=== PATIENT | female | born 1930 | race Caucasian/White ===

== ENCOUNTER 2016-03-05 19:47 | Inpatient (IN) | payer MEDICARE, BC ==
[~2016-03-05] VITALS: Ht 165.1 cm; Wt 66.7 kg
[~2016-03-05 19:47] MED LIST: AMIT10TA6 PO; ASPI81TA2 PO; BIOT1000 PO; CHOL20006 PO; CITA20TA19 PO; CRAN300T PO; GABA600T PO; OMEG-15 PO; OMEP40CA PO; RESV250C2 PO; VALS320T2 PO
[2016-03-05] MEDS ORDERED: IV NS 0.9% 500 ML IV ONE ×2 (20:37→20:53)
[2016-03-05] MEDS ORDERED: IV SET PRIMARY 1 EA INFUS.SET MC ONE (20:37)
[2016-03-05 20:38] LABS: BASOPHILS % (AUTO) 0.5 % (0.0-2.0); DIFF TOTAL % 100 %; EOSINOPHILS # (AUTO) 0.1 /CMM (0.0-0.7); HEMATOCRIT 35 % (33-45); HEMOGLOBIN 12.3 g/dL (11.5-14.8); LYMPHOCYTES # (AUTO) 1.2 /CMM (0.8-4.8); LYMPHOCYTES % (AUTO) 27.1 % (20.0-44.0); MEAN CORPUSCULAR HEMOGLOBIN 32 PG (26.0-33.0); MEAN CORPUSCULAR HGB CONC 35 g/dl (31.0-36.0); MEAN CORPUSCULAR VOLUME 92 fL (82-100); MONOCYTES # (AUTO) 0.3 /CMM (0.1-1.30); MONOCYTES % (AUTO) 7.1 % (2.0-12.0); NEUTROPHILS # (AUTO) 2.8 /CMM (1.8-8.9); NEUTROPHILS % (AUTO) 63.3 % (43.0-81.0); PLATELET COUNT (AUTO) 128 /CMM (150-450); RED BLOOD CELL COUNT(AUTO) 3.83 MIL/uL (4.0-5.2); WHITE BLOOD COUNT (AUTO) 4.4 K/uL (4.3-11.0)
[2016-03-05 20:44] LABS: CALCIUM, SERUM 9.2 mg/dL (8.5-10.1); CREATININE 1.3 mg/dL (0.6-1.3); POTASSIUM 3.6 mmol/L (3.5-5.1)
[2016-03-05 20:47] LABS: INR 1.04 (0.87-1.13); PROTHROMBIN TIME 10.9 SECS (9.5-12.7)
[2016-03-05 20:50] LABS: ALBUMIN 3.3 g/dL (3.4-5.0); BILIRUBIN,DIRECT 0.1 mg/dL (0.0-0.2); BILIRUBIN,TOTAL 0.4 mg/dL (0.2-1.0); INDIRECT BILIRUBIN 0.3 mg/dL (0.0-1.1); TOTAL PROTEIN, SERUM 6.3 g/dL (6.4-8.2)
[2016-03-05 20:52] LABS: TROPONIN I 0.038 ng/mL (0.00-0.056)
[2016-03-05] MEDS ORDERED: IV NS 0.9% 500 ML BAG IV ONE ×2 (21:00)
[2016-03-05] MEDS ORDERED: IV NS 0.9% 1,000 ML IV PRN (22:25)
[2016-03-05] MEDS ORDERED: MAGNESIUM HYDROXIDE 30 ML UDC PO PRN (22:30)
[2016-03-05] MEDS ORDERED: ONDANSETRON HCL/PF 4 MG/2 ML VIAL IVP PRN (22:30)
[2016-03-05] MEDS ORDERED: ZOLPIDEM TARTRATE 5 MG TABLET PO PRN (22:30)
[2016-03-05] MEDS ORDERED: ACETAMINOPHEN 325 MG TABLET PO PRN (22:30)
[2016-03-05] MEDS ORDERED: MAG HYDROX/AL HYDROX/SIMETH 30 ML UDC PO PRN (22:30)
[2016-03-05] MEDS ORDERED: Z GUARD REMEDY 2 OZ OINT TP PRN (22:30)
[2016-03-05] MEDS ORDERED: HYDROCODONE/APAP 5/325MG 1 EACH TABLET PO PRN (22:30)
[2016-03-05] MEDS ORDERED: IV SET PRIMARY PUMP SET 1 EA INFUS.SET MC ONE (23:37)
[2016-03-06] VITALS (8 sets, daily range): BP systolic 120–160; BP diastolic 57–80
[2016-03-06 07:16] LABS: BASOPHILS % (AUTO) 0.3 % (0.0-2.0); DIFF TOTAL % 100 %; EOSINOPHILS # (AUTO) 0.1 /CMM (0.0-0.7); EOSINOPHILS % (AUTO) 1.8 % (0.0-6.0); HEMATOCRIT 32 % (33-45); LYMPHOCYTES # (AUTO) 1.3 /CMM (0.8-4.8); LYMPHOCYTES % (AUTO) 22.6 % (20.0-44.0); MEAN CORPUSCULAR HEMOGLOBIN 32 PG (26.0-33.0); MEAN CORPUSCULAR HGB CONC 35 g/dl (31.0-36.0); MEAN CORPUSCULAR VOLUME 92 fL (82-100); MONOCYTES # (AUTO) 0.4 /CMM (0.1-1.30); MONOCYTES % (AUTO) 7.1 % (2.0-12.0); NEUTROPHILS # (AUTO) 3.9 /CMM (1.8-8.9); NEUTROPHILS % (AUTO) 68.2 % (43.0-81.0); PLATELET COUNT (AUTO) 113 /CMM (150-450); RED BLOOD CELL COUNT(AUTO) 3.45 MIL/uL (4.0-5.2); WHITE BLOOD COUNT (AUTO) 5.8 K/uL (4.3-11.0)
[2016-03-06] MEDS ORDERED: IV NS 0.9% 1,000 ML IV PRN (07:18)
[2016-03-06] MEDS ORDERED: PANTOPRAZOLE 40 MG TABLET.DR PO SCH (07:30)
[2016-03-06 07:47] LABS: CALCIUM, SERUM 8.4 mg/dL (8.5-10.1); POTASSIUM 3.5 mmol/L (3.5-5.1)
[2016-03-06] MEDS ORDERED: CRANBERRY EXTRACT 300 MG PO SCH (09:00)
[2016-03-06] MEDS ORDERED: ASPIRIN 81 MG TAB.CHEW PO SCH ×2 (09:00)
[2016-03-06] MEDS ORDERED: Medication Not On Formulary EA (Omega-3/Dha/Epa/Fish Oil (Fish Oil 1,400 Mg Softgel) 1 E PO SCH (09:00)
[2016-03-06] MEDS ORDERED: CHOLECALCIFEROL 1,000 UNIT TABLET (VIT D3) PO SCH (09:00)
[2016-03-06] MEDS ORDERED: BIOTIN 10000 MCG PO SCH (09:00)
[2016-03-06] MEDS ORDERED: VALSARTAN 80 MG TABLET PO SCH (09:00)
[2016-03-06] MEDS ORDERED: GABAPENTIN 300 MG CAPSULE PO SCH (11:30)
[2016-03-06] MEDS ORDERED: SECONDARY IV SET 1 EA INFUS.SET MC ONE (14:37)
[2016-03-06] MEDS: Magnesium 1GM/D5W 100ML PREMIX 100 ML IV SCH ×2 (14:49→16:10)
[2016-03-06] MEDS ORDERED: GABAPENTIN 400 MG CAPSULE PO SCH (22:00)
[2016-03-06] MEDS ORDERED: CITALOPRAM HYDROBROMIDE 20 MG TABLET PO SCH (22:00)
[2016-03-06] MEDS ORDERED: AMITRIPTYLINE HCL 10 MG TABLET PO SCH (22:00)
== END 2016-03-06 17:55 | disposition home or self-care (01) | DRG 73 ==
LOC: ER 19:49 → TELE 21:52
PROVIDERS: ADMIT Internal Medicine; ATTEND Internal Medicine
DX: G90.8 Other disorders of autonomic nervous system (principal); N17.0 Acute kidney failure with tubular necrosis; E44.0 Moderate protein-calorie malnutrition; I10 Essential (primary) hypertension; E86.0 Dehydration; E83.39 Other disorders of phosphorus metabolism; H91.90 Unspecified hearing loss, unspecified ear; K21.9 Gastro-esophageal reflux disease without esophagitis; G62.9 Polyneuropathy, unspecified; M62.50 Muscle wasting and atrophy, not elsewhere classified, unspecified site; Z68.24 Body mass index [BMI] 24.0-24.9, adult; D63.8 Anemia in other chronic diseases classified elsewhere; J44.9 Chronic obstructive pulmonary disease, unspecified
CPT/HCPCS: 36415; 71010-TC; 80048-TC; 80076-TC; 83735-TC; 84100-TC; 84484-TC; 85025-TC; 85730-TC; 87081-TC; 93307-TC; A4606; J3475; J7040; Z7610

== ENCOUNTER 2016-05-02 23:32 | Inpatient (IN) | payer MEDICARE, BC ==
[~2016-05-02] VITALS: Ht 152.4 cm; Wt 61.7 kg
[~2016-05-02 23:32] MED LIST changes: -RESV250C2 PO
[2016-05-03 00:39] LABS: BASOPHILS % (AUTO) 0.1 % (0.0-2.0); DIFF TOTAL % 100 %; EOSINOPHILS # (AUTO) 0.1 /CMM (0.0-0.7); EOSINOPHILS % (AUTO) 1.5 % (0.0-6.0); HEMATOCRIT 34 % (33-45); HEMOGLOBIN 11.3 g/dL (11.5-14.8); LYMPHOCYTES # (AUTO) 0.8 /CMM (0.8-4.8); LYMPHOCYTES % (AUTO) 17.9 % (20.0-44.0); MEAN CORPUSCULAR HEMOGLOBIN 31 PG (26.0-33.0); MEAN CORPUSCULAR HGB CONC 34 g/dl (31.0-36.0); MEAN CORPUSCULAR VOLUME 92 fL (82-100); MONOCYTES # (AUTO) 0.4 /CMM (0.1-1.30); MONOCYTES % (AUTO) 7.8 % (2.0-12.0); NEUTROPHILS # (AUTO) 3.3 /CMM (1.8-8.9); NEUTROPHILS % (AUTO) 72.7 % (43.0-81.0); PLATELET COUNT (AUTO) 127 /CMM (150-450); RED BLOOD CELL COUNT(AUTO) 3.64 MIL/uL (4.0-5.2); WHITE BLOOD COUNT (AUTO) 4.6 K/uL (4.3-11.0)
[2016-05-03 00:54] LABS: ANION GAP 10 (5-14); CARBON DIOXIDE 29 mmol/L (21-32); CHLORIDE 105 mmol/L (98-107); CREATININE 1.2 mg/dL (0.6-1.3); GLUCOSE 109 mg/dL (74-106); POTASSIUM 3.9 mmol/L (3.5-5.1); SODIUM SERUM 140 mmol/L (136-145); UREA NITROGEN, BLOOD 33 mg/dL (7-18)
[2016-05-03 00:57] LABS: INR 0.97 (0.87-1.13); PROTHROMBIN TIME 10.5 SECS (9.5-12.7)
[2016-05-03 01:00] LABS: ALANINE AMINOTRANSFERASE 23 U/L (12-78); ALBUMIN 3.4 g/dL (3.4-5.0); ASPARTATE AMINOTRANSFERASE 13 U/L (15-37); BILIRUBIN,DIRECT 0.1 mg/dL (0.0-0.2); BILIRUBIN,TOTAL 0.5 mg/dL (0.2-1.0); INDIRECT BILIRUBIN 0.4 mg/dL (0.0-1.1); TOTAL PROTEIN, SERUM 6.1 g/dL (6.4-8.2)
[2016-05-03 01:03] LABS: TROPONIN I < 0.017 ng/mL (0.00-0.056)
[2016-05-03] MEDS ORDERED: MELA1TAB2 PO (01:30)
[2016-05-03 02:40] VITALS: BP 141/69
[2016-05-03] MEDS ORDERED: ONDANSETRON HCL/PF 4 MG/2 ML VIAL IVP PRN (03:30)
[2016-05-03] MEDS ORDERED: HYDROCODONE/APAP 5/325MG 1 EACH TABLET PO PRN (03:30)
[2016-05-03] MEDS ORDERED: MAGNESIUM HYDROXIDE 30 ML UDC PO PRN (03:30)
[2016-05-03] MEDS ORDERED: ACETAMINOPHEN 325 MG TABLET PO PRN (03:30)
[2016-05-03] MEDS ORDERED: ZOLPIDEM TARTRATE 5 MG TABLET PO PRN (03:30)
[2016-05-03 04:00] VITALS: BP 141/69
[2016-05-03 08:00] VITALS: BP 113/53
[2016-05-03] MEDS: PANTOPRAZOLE 40 MG TABLET.DR PO SCH (08:21)
[2016-05-03] MEDS ORDERED: GABA-534 PO (09:11)
[2016-05-03] MEDS ORDERED: VALS80TA2 PO (09:11)
[2016-05-03 12:00] VITALS: BP 110/61
[2016-05-03 16:00] VITALS: BP_SYST 121; BP_SYST 130; BP_DIAS 70; BP_DIAS 72
[2016-05-03] MEDS: GABAPENTIN 300 MG CAPSULE PO SCH (16:20)
[2016-05-03 20:00] VITALS: BP 127/42
[2016-05-03] MEDS ORDERED: CITALOPRAM HYDROBROMIDE 20 MG TABLET PO SCH (22:00)
[2016-05-03] MEDS ORDERED: ASPIRIN 81 MG TAB.CHEW PO SCH (22:00)
[2016-05-04 07:04] LABS: BASOPHILS % (AUTO) 0.5 % (0.0-2.0); DIFF TOTAL % 100 %; EOSINOPHILS # (AUTO) 0.1 /CMM (0.0-0.7); EOSINOPHILS % (AUTO) 3.6 % (0.0-6.0); HEMATOCRIT 33 % (33-45); HEMOGLOBIN 11.3 g/dL (11.5-14.8); LYMPHOCYTES # (AUTO) 1.1 /CMM (0.8-4.8); LYMPHOCYTES % (AUTO) 28.5 % (20.0-44.0); MEAN CORPUSCULAR HEMOGLOBIN 31 PG (26.0-33.0); MEAN CORPUSCULAR HGB CONC 34 g/dl (31.0-36.0); MEAN CORPUSCULAR VOLUME 92 fL (82-100); MONOCYTES # (AUTO) 0.4 /CMM (0.1-1.30); MONOCYTES % (AUTO) 11.1 % (2.0-12.0); NEUTROPHILS # (AUTO) 2.2 /CMM (1.8-8.9); NEUTROPHILS % (AUTO) 56.3 % (43.0-81.0); PLATELET COUNT (AUTO) 123 /CMM (150-450); RED BLOOD CELL COUNT(AUTO) 3.58 MIL/uL (4.0-5.2)
[2016-05-04 07:17] LABS: CALCIUM, SERUM 8.7 mg/dL (8.5-10.1); PHOSPHORUS 3.1 mg/dL (2.5-4.9); POTASSIUM 3.7 mmol/L (3.5-5.1)
[2016-05-04 08:00] VITALS: BP 119/54
[2016-05-04] MEDS: PANTOPRAZOLE 40 MG TABLET.DR PO SCH (08:26)
[2016-05-04] MEDS: GABAPENTIN 300 MG CAPSULE PO SCH (08:26)
[2016-05-04 08:33] VITALS: BP 119/54
[2016-05-04 09:00] VITALS: BP 118/57
[2016-05-04] MEDS ORDERED: PANTOPRAZOLE 40 MG TABLET.DR PO SCH (09:00)
[2016-05-04] MEDS ORDERED: VALSARTAN 80 MG TABLET PO SCH (09:00)
[2016-05-04] MEDS ORDERED: MAGNESIUM OXIDE 400 MG TABLET PO ONE (12:00)
== END 2016-05-04 12:22 | disposition home or self-care (01) | DRG 392 ==
LOC: ER 23:39 → TELE1 05-03 02:00 → MEDSG1 05-04 00:09
PROVIDERS: ADMIT Nurse Practitioner Acute Care
DX: K21.9 Gastro-esophageal reflux disease without esophagitis (principal); R07.9 Chest pain, unspecified; I11.9 Hypertensive heart disease without heart failure; E78.5 Hyperlipidemia, unspecified; J44.9 Chronic obstructive pulmonary disease, unspecified; M06.9 Rheumatoid arthritis, unspecified; F32.9 Major depressive disorder, single episode, unspecified; Z90.49 Acquired absence of other specified parts of digestive tract; D64.9 Anemia, unspecified; K58.9 Irritable bowel syndrome, unspecified
CPT/HCPCS: 36415; 71100-TC; 80048-TC; 80061-TC; 80076-TC; 83690-TC; 83735-TC; 83880; 84100-TC; 84484-TC; 85025-TC; 85730-TC; 87081-TC; A4606; Z7610

== ENCOUNTER 2016-12-16 20:47 | Inpatient (IN) | payer MEDICARE, BC ==
[~2016-12-16] VITALS: Ht 154.9 cm; Wt 62.6 kg
[2016-12-16 20:00] VITALS: BP 125/65
[~2016-12-16 20:47] MED LIST changes: -AMIT10TA6 PO; +GABA-534 PO; -GABA600T PO; +MELA1TAB2 PO; -VALS320T2 PO; +VALS80TA2 PO
--- NOTE | 2016-12-16 20:54 | NUR ---
pt [id number] fr home for c/o sudden onset lt sided cp, nonradiating, given ASA 162mg f/b NTG x1 spray in field w/ cp since relieved, report also taking her own ASA 162mg at home. AOx4, afebrile w/ resp even & unlabored, hypoxic, denies any sob, report feeling lightheaded w/ no cp at this time. Placed on 2 l/min O2 via NC, pulse-ox w/ cardiac monitoring. Dr. Lucas at bedside for further eval.
--- NOTE | 2016-12-16 20:56 | NUR ---
labs drawn & sent.
[2016-12-16 21:11] LABS: BASOPHILS % (AUTO) 0.5 % (0.0-2.0); EOSINOPHILS # (AUTO) 0.1 /CMM (0.0-0.7); EOSINOPHILS % (AUTO) 1.4 % (0.0-6.0); HEMATOCRIT 34 % (33-45); HEMOGLOBIN 11.4 g/dL (11.5-14.8); LYMPHOCYTES # (AUTO) 0.3 /CMM (0.8-4.8); LYMPHOCYTES % (AUTO) 6.2 % (20.0-44.0); MEAN CORPUSCULAR HEMOGLOBIN 32 PG (26.0-33.0); MEAN CORPUSCULAR HGB CONC 34 g/dl (31.0-36.0); MEAN CORPUSCULAR VOLUME 93 fL (82-100); MONOCYTES # (AUTO) 0.1 /CMM (0.1-1.30); MONOCYTES % (AUTO) 1.7 % (2.0-12.0); NEUTROPHILS # (AUTO) 4.5 /CMM (1.8-8.9); NEUTROPHILS % (AUTO) 90.2 % (43.0-81.0); PLATELET COUNT (AUTO) 100 /CMM (150-450); RDW COEFFICIENT OF VARIATION 13.1 (11.5-15.0); RED BLOOD CELL COUNT(AUTO) 3.61 MIL/uL (4.0-5.2)
--- NOTE | 2016-12-16 21:13 | NUR ---
CXR at bedside.
[2016-12-16 21:29] LABS: CALCIUM, SERUM 8.8 mg/dL (8.5-10.1); CARBON DIOXIDE 28 mmol/L (21-32); CHLORIDE 99 mmol/L (98-107); CREATININE 1.3 mg/dL (0.6-1.3); GLUCOSE 170 mg/dL (74-106); POTASSIUM 3.5 mmol/L (3.5-5.1); SODIUM SERUM 134 mmol/L (136-145); UREA NITROGEN, BLOOD 38 mg/dL (7-18)
[2016-12-16 21:37] LABS: INR 1.01 (0.87-1.13); PROTHROMBIN TIME 10.5 SECS (9.5-12.7); TROPONIN I < 0.017 ng/mL (0.00-0.056)
--- NOTE | 2016-12-16 21:44 | NUR ---
Report given to FANTA Harrington for pt admission to tele rm [id number]. pt lying in bed w/ resp even & unlabored, denies any cp at this time w/ nad noted. On continuous cardiac monitoring.
[2016-12-16 22:30] VITALS: BP 125/65
[2016-12-16] MEDS ORDERED: ACETAMINOPHEN 325 MG TABLET PO PRN (23:00)
[2016-12-16] MEDS ORDERED: HYDROCODONE/APAP 5/325MG 1 EACH TABLET PO PRN (23:00)
[2016-12-16] MEDS ORDERED: MAG HYDROX/AL HYDROX/SIMETH 30 ML UDC PO PRN (23:00)
[2016-12-16] MEDS ORDERED: ZOLPIDEM TARTRATE 5 MG TABLET PO PRN (23:00)
[2016-12-16] MEDS ORDERED: MAGNESIUM HYDROXIDE 30 ML UDC PO PRN (23:00)
[2016-12-16] MEDS ORDERED: ENOXAPARIN SODIUM 30 MG/0.3 ML DISP.SYRIN SQ SCH (23:00)
[2016-12-16] MEDS ORDERED: Z GUARD REMEDY 2 OZ OINT TP PRN (23:00)
[2016-12-16] MEDS ORDERED: ONDANSETRON HCL/PF 4 MG/2 ML VIAL IVP PRN (23:00)
[2016-12-16] MEDS ORDERED: ENOXAPARIN SODIUM 30 MG/0.3 ML DISP.SYRIN ONE (23:20)
[2016-12-16] MEDS ORDERED: CITALOPRAM HYDROBROMIDE 20 MG TABLET ONE (23:21)
[2016-12-17] VITALS: BP 99/47
[2016-12-17 04:00] VITALS: BP 114/48
[2016-12-17 05:12] VITALS: BP 114/48
[2016-12-17 06:00] LABS: BASOPHILS % (AUTO) 0.3 % (0.0-2.0); CALCIUM, SERUM 8.6 mg/dL (8.5-10.1); CARBON DIOXIDE 28 mmol/L (21-32); CHLORIDE 102 mmol/L (98-107); CREATININE 1.2 mg/dL (0.6-1.3); EOSINOPHILS % (AUTO) 1.2 % (0.0-6.0); GLUCOSE 122 mg/dL (74-106); HEMATOCRIT 31 % (33-45); HEMOGLOBIN 10.6 g/dL (11.5-14.8); LYMPHOCYTES # (AUTO) 0.4 /CMM (0.8-4.8); LYMPHOCYTES % (AUTO) 10.6 % (20.0-44.0); MAGNESIUM 1.8 mg/dL (1.8-2.4); MEAN CORPUSCULAR HEMOGLOBIN 32 PG (26.0-33.0); MEAN CORPUSCULAR HGB CONC 35 g/dl (31.0-36.0); MEAN CORPUSCULAR VOLUME 92 fL (82-100); MONOCYTES # (AUTO) 0.2 /CMM (0.1-1.30); MONOCYTES % (AUTO) 5.8 % (2.0-12.0); NEUTROPHILS # (AUTO) 3.1 /CMM (1.8-8.9); NEUTROPHILS % (AUTO) 82.1 % (43.0-81.0); PHOSPHORUS 3.5 mg/dL (2.5-4.9); PLATELET COUNT (AUTO) 81 /CMM (150-450); POTASSIUM 3.3 mmol/L (3.5-5.1); RDW COEFFICIENT OF VARIATION 13.6 (11.5-15.0); SODIUM SERUM 137 mmol/L (136-145); UREA NITROGEN, BLOOD 34 mg/dL (7-18); WHITE BLOOD COUNT (AUTO) 3.8 K/uL (4.3-11.0)
[2016-12-17] MEDS ORDERED: GABAPENTIN 300 MG CAPSULE ONE (06:39)
[2016-12-17] MEDS ORDERED: IV NS 0.9% 1,000 ML IV PRN (06:47)
--- NOTE | 2016-12-17 06:58 | NUR ---
Patient seen by MD Bhatt. Patient schedule for a stress test today. Patient had no chest pain this 12 hours. Smiling and in good spirits
[2016-12-17] MEDS ORDERED: GABAPENTIN 300 MG CAPSULE PO SCH (07:00)
[2016-12-17] MEDS ORDERED: POTASSIUM CHLORIDE 20 MEQ TAB.PRT.SR PO SCH (07:00)
[2016-12-17 08:00] VITALS: BP 128/53
--- NOTE | 2016-12-17 08:00 | NUR ---
RN NOTES RECEIVED PATIENT IN THE ROOM, A/O X3/, NO RESPIRATORY DISTRESS, NO C/O PAIN, V/S STABLE,PATIENT NPO GOING STRESS TEST, CONSENT FORM SIGNED, PATIENT AMBULATORY, CONTINENT, HR-65, CALL LIGHT WITHIN TO REACH, SAFETY PRECAUTION MAINTAINED ALL THE TIME.
[2016-12-17 08:33] LABS: BAND % (MANUAL) 6 % (0.0-5.0); EOSINOPHILS % (MANUAL) 3 % (0-4); LYMPHOCYTES % (MANUAL) 11 % (16-48); MONOCYTES % (MANUAL) 8 % (0-11.0); NEUTROPHILS % (MANUAL) 72 (42-76)
[2016-12-17 08:40] LABS: IRON, SERUM 20 ug/dl (50-175); TOTAL IRON BINDING CAPACITY 190 ug/dl (250-450)
[2016-12-17] MEDS ORDERED: Medication Not On Formulary EA (Omega-3/Dha/Epa/Fish Oil (Fish Oil 1,400 Mg Softgel) 1 E PO SCH (09:00)
[2016-12-17] MEDS ORDERED: VALSARTAN 80 MG TABLET PO SCH (09:00)
[2016-12-17] MEDS ORDERED: CRANBERRY EXTRACT 300 MG PO SCH (09:00)
[2016-12-17] MEDS ORDERED: CHOLECALCIFEROL 1,000 UNIT TABLET (VIT D3) PO SCH (09:00)
[2016-12-17] MEDS ORDERED: BIOTIN 10000 MCG PO SCH (09:00)
[2016-12-17 09:14] LABS: FERRITIN 1268 ng/mL (8-388)
--- NOTE | 2016-12-17 10:30 | NUR ---
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
[2016-12-17] MEDS ORDERED: REGADENOSON 0.4 MG/5 ML DISP.SYRIN IVP ONE (11:00)
--- NOTE | 2016-12-17 11:30 | NUR ---
RN NOTES PATIENT BACK FROM TEST, NO ACUTE DISTRESS, EATING, NO C/O PAIN AT THIS TIME, CALL LIGHT WITHIN TO REACH, SAFETY PRECAUTION MAINTAINED ALL THE TIME.
[2016-12-17 12:00] VITALS: BP 124/56
[2016-12-17 12:04] VITALS: BP 128/75
--- NOTE | 2016-12-17 13:42 | NUR ---
RN NOTES PATIENT IN THE ROOM, NO NO RESPIRATORY DISTRESS, MED COMPLIANT, V/S STABLE, PT AMBULATORY SELF CARE, CALL LIGHT WITHIN TO REACH, SAFETY PRECAUTION MAINTAINED ALL THE TIME.
--- NOTE | 2016-12-17 15:54 | NUR ---
WOOL SAMPLER NOTES PATIENT DISCHARGE AT THIS TIME GOING HOME. PATIENT A/O X4, V/S STABLE, MEDICALLY STABLE TO D/C HOME, MED RECONCILIATION AND DISCHARGE ORDER REVIEWED AND AND EXPLAINED TO. PATIENT VERBALIZED UNDERSTANDING, BELONGING RETURNED BACK TO THE PATIENT. PATIENT DIVISION DIRECTOR BY GRAND SON NAME MEE PHONE # [phone]. ESCORTED PATIENT DOWN TO THE LOBBY FOR SAFETY.
[2016-12-17] MEDS ORDERED: ASPIRIN 81 MG TAB.CHEW PO SCH (22:00)
[2016-12-17] MEDS ORDERED: PYRIDOXINE PO SCH (22:00)
[2016-12-17] MEDS ORDERED: MELATONIN PO SCH (22:00)
[2016-12-17] MEDS ORDERED: CITALOPRAM HYDROBROMIDE 20 MG TABLET PO SCH (22:00)
[2016-12-18] MEDS ORDERED: PANTOPRAZOLE 40 MG TABLET.DR PO SCH (07:30)
== END 2016-12-17 16:00 | disposition home or self-care (01) | DRG 206 ==
LOC: ER 20:49 → TELE 22:02
PROVIDERS: ADMIT Internal Medicine; ATTEND Internal Medicine
DX: M94.0 Chondrocostal junction syndrome [Tietze] (principal); N17.9 Acute kidney failure, unspecified; G62.9 Polyneuropathy, unspecified; I50.32 Chronic diastolic (congestive) heart failure; I11.0 Hypertensive heart disease with heart failure; D63.8 Anemia in other chronic diseases classified elsewhere; J44.9 Chronic obstructive pulmonary disease, unspecified; M06.9 Rheumatoid arthritis, unspecified; F41.9 Anxiety disorder, unspecified; F32.9 Major depressive disorder, single episode, unspecified; E78.5 Hyperlipidemia, unspecified; K58.9 Irritable bowel syndrome, unspecified; Z90.49 Acquired absence of other specified parts of digestive tract; E87.6 Hypokalemia; I34.0 Nonrheumatic mitral (valve) insufficiency; Z79.82 Long term (current) use of aspirin
CPT/HCPCS: 36415; 71010-TC; 80048-TC; 82728-TC; 83540-TC; 83735-TC; 84100-TC; 84484-TC; 85025-TC; 85730-TC; 87081-TC; 93307-TC; A9502; J1650; J2785

== ENCOUNTER 2017-08-24 14:05 | Emergency (ER) | payer MEDICARE, BC ==
[~2017-08-24] VITALS: Ht 144.8 cm; Wt 63.0 kg
[~2017-08-24 14:05] MED LIST changes: +ASPI-1169 PO; -ASPI81TA2 PO
[2017-08-24 14:08] VITALS: BP 134/66
[2017-08-24] MEDS ORDERED: HYDROCODONE/APAP 5/325MG 1 EACH TABLET PO ONE (14:30)
[2017-08-24] MEDS ORDERED: HYDROCODONE/APAP 5/325MG 1 EACH TABLET ONE (14:31)
--- NOTE | 2017-08-24 14:54 | NUR ---
PT TO XRAY
== END 2017-08-24 15:55 | disposition home or self-care (01) ==
LOC: ER 14:06
DX: S30.0XXA Contusion of lower back and pelvis, initial encounter (principal); I10 Essential (primary) hypertension; M06.9 Rheumatoid arthritis, unspecified; Z79.82 Long term (current) use of aspirin; Z90.49 Acquired absence of other specified parts of digestive tract; W18.39XA Other fall on same level, initial encounter; Y93.89 Activity, other specified; Y92.89 Other specified places as the place of occurrence of the external cause; Y99.8 Other external cause status
CPT/HCPCS: 72100-TC; A4606; Z7610